=== PATIENT | female | born 1985 | race Two or more races ===

== ENCOUNTER 2017-05-28 13:12 | Emergency (ER) | payer SELFPAY ==
[~2017-05-28] VITALS: Ht 160 cm; Wt 45.4 kg
[2017-05-28 13:53] LABS: Basophils # (auto) 0 uL; Basophils % (auto) 0.3 % (0.0-2.0); CONDITION Y; Eosinophils # (auto) 0 uL; Eosinophils % (auto) 0.8 % (0.0-7.0); Hematocrit 37.5 % (36.0-46.0); Hemoglobin 12.7 g/dL (12.2-16.2); Lymphocytes # (auto) 1.7 uL; Lymphocytes % (auto) 28.9 % (10.0-50.0); Mean Corpuscular Hemoglobin 32.8 pg (28.0-32.0); Mean Corpuscular Hgb Conc. 33.8 g/dL (32.0-36.0); Mean Corpuscular Volume 97.1 fL (80.0-100.0); Mean Platelet Volume 11.5 fL (7.4-10.4); Monocytes # (auto) 0.8 uL; Monocytes % (auto) 12.7 % (0.0-12.0); Neutrophils # (auto) 3.5 uL; Neutrophils % (auto) 57.3 % (37.0-80.0); Platelet Count (auto) 210 10^3/uL (140-450); Red Cell Distribution Width 12.6 % (11.6-16.0); White Blood Cell 6.1 10^3/uL (4.4-10.8)
[2017-05-28 14:03] LABS: Urine Bilirubin Negative (Negative); Urine Blood Negative /uL (Negative); Urine Color Yellow (Yellow); Urine Glucose Normal (Normal); Urine Ketone Negative (Negative); Urine Mucus FEW (None Seen); Urine Nitrite Negative (Negative); Urine RBC 1 /hpf (0 - 4); Urine Squamous Epithelial Cell FEW /hpf (<5)
[2017-05-28 14:22] LABS: Albumin 3.6 g/dL (3.4-5.0); BUN/Creatinine Ratio 18.3; Bilirubin, Total 0.4 mg/dL (0.2-1.0); Calcium 8.5 mg/dL (8.5-10.1); Potassium 3.8 mmol/L (3.5-5.1); Total Protein 7.6 g/dL (6.4-8.2)
[2017-05-28 19:01] VITALS: BP 90/63
[2017-05-28] MEDS ORDERED: SODIUM CHLORIDE 0.9% 1,000 ML IV ONE (19:15)
[2017-05-28] MEDS ORDERED: ONDANSETRON HCL 4 MG/2 ML VIAL IV ONE (19:15)
== END 2017-05-28 21:16 | disposition home or self-care (01) ==
LOC: ER 13:12
DX: O21.1 Hyperemesis gravidarum with metabolic disturbance (principal); E86.0 Dehydration; Z3A.01 Less than 8 weeks gestation of pregnancy; R55 Syncope and collapse
CPT/HCPCS: 36415; 76801; 76817; 80053; 81001; 82962; 84702; 85025; 96361; 96374; 99285; J2405; J7030

== ENCOUNTER 2017-12-28 10:30 | Inpatient (IN) | payer MEDICAID ==
[~2017-12-28] VITALS: Ht 1 cm; Wt 0.5 kg
[2017-12-28] MEDS: LACTATED RINGER'S 1,000 ML IV SCH ×2 (11:15→19:15)
[2017-12-28] MEDS ORDERED: DERMOPLAST 60ML BOTTLE TOP PRN (11:15)
[2017-12-28] MEDS ORDERED: WITCH HAZEL-GLYCERIN PAD TOP PRN (11:15)
[2017-12-28] MEDS ORDERED: PHISODERM TOP SOLN 240ML BTL TOP PRN (11:15)
[2017-12-28] MEDS ORDERED: CARBOPROST TROMETHAMINE 250 MCG/1ML VIAL IM PRN (11:15)
[2017-12-28] MEDS ORDERED: LACT. RINGERS/OXYTOCIN 20UNITS 1,000 ML IV SCH (11:15)
[2017-12-28] MEDS ORDERED: LIDOCAINE 2%HCL (LOCAL ANESTH.) INJ 20ML MDV IJ ONE (11:15)
[2017-12-28] MEDS ORDERED: NALBUPHINE HCL 10 MG/1ml INJECTION IV PRN (11:15)
[2017-12-28 12:00] LABS: Basophils # (auto) 0 uL; Eosinophils # (auto) 0 uL; Eosinophils % (auto) 0.5 % (0.0-7.0); Hemoglobin 13.8 g/dL (12.2-16.2)
[2017-12-28 12:01] LABS: Basophils % (auto) 0.5 % (0.0-2.0); Hematocrit 41.6 % (36.0-46.0); Lymphocytes # (auto) 1.9 uL; Lymphocytes % (auto) 25.5 % (10.0-50.0); Mean Corpuscular Hemoglobin 34.6 pg (28.0-32.0); Mean Corpuscular Hgb Conc. 33.1 g/dL (32.0-36.0); Mean Corpuscular Volume 104.4 fL (80.0-100.0); Monocytes # (auto) 0.9 uL; Monocytes % (auto) 12.6 % (0.0-12.0); Neutrophils # (auto) 4.6 uL; Neutrophils % (auto) 60.9 % (37.0-80.0); Platelet Count (auto) 140 10^3/uL (140-450); Red Blood Cells 3.98 10^6/uL (4.0-5.20); Red Cell Distribution Width 13.9 % (11.8-14.3); White Blood Cell 7.5 10^3/uL (4.4-10.8)
[2017-12-28 12:12] LABS: INR 0.98 (0.9-1.15); Partial Thromboplastin Time 29.6 sec (22.64-33.71); Prothrombin Time 10.7 sec (9.37-12.3)
[2017-12-28] MEDS ORDERED: LIDOCAINE HCL 2 %PF INJ 10ML AMP IJ ONE ×2 (12:30→12:40)
[2017-12-28] MEDS ORDERED: fentaNYL CITRATE 100 MCG/2 ML VL IV ONE (12:30)
[2017-12-28] MEDS ORDERED: ePHEDrine SULFATE 50 MG/ML AMP IV ONE (12:30)
[2017-12-28] MEDS ORDERED: NALOXONE HCL 0.4 MG/ML VIAL IV ONE (12:30)
[2017-12-28] MEDS ORDERED: fentaNYL W ROPIVACAINE 150 ML EPI SCH (12:30)
[2017-12-28 12:32] LABS: Albumin 2.6 g/dL (3.4-5.0); BUN/Creatinine Ratio 10.3; Calcium 8.7 mg/dL (8.5-10.1); Potassium 3.3 mmol/L (3.5-5.1)
[2017-12-28 12:35] LABS: Bilirubin, Total 0.5 mg/dL (0.2-1.0); Total Protein 6.8 g/dL (6.4-8.2)
[2017-12-28] MEDS ORDERED: ePHEDrine SULFATE 50 MG/ML AMP ONE (12:40)
[2017-12-28] MEDS ORDERED: fentaNYL W ROPIVACAINE 0 ML EPI ONE (12:40)
[2017-12-28] MEDS ORDERED: fentaNYL CITRATE 100 MCG/2 ML VL ONE (12:40)
[2017-12-28 12:51] LABS: Urine Bacteria NONE SEEN /hpf (None Seen); Urine Blood 2+ /uL (Negative); Urine WBC 7 /hpf (0 - 5)
[2017-12-28 12:53] LABS: Alcohol, Urine < 3.0 mg/dL (0-5); Amphetamine Screen, Urine NEGATIVE (NEGATIVE); Barbiturate Scree,Urine NEGATIVE (NEGATIVE); Benzodiazephine Screen, Urine NEGATIVE (NEGATIVE); Cannabinoid Screen, Urine NEGATIVE (NEGATIVE); Cocaine Screen, Urine NEGATIVE (NEGATIVE); Opiate Scree,Urine NEGATIVE (NEGATIVE); Phencyclidine Screen, Urine NEGATIVE (NEGATIVE)
[2017-12-28] MEDS: IBUPROFEN 600 MG TAB PO PRN ×3 (14:19→23:16)
[2017-12-28 15:00] VITALS: BP 106/58
[2017-12-28 19:00] VITALS: BP 105/58
[2017-12-28] MEDS ORDERED: ACETAMINOPHEN/CODEINE#3 (300/30mg) TAB PO PRN (20:15)
[2017-12-28] MEDS ORDERED: ACETAMINOPHEN/CODEINE#3 (300/30mg) TAB ONE (20:23)
[2017-12-28 23:00] VITALS: BP 111/63
[2017-12-29 03:00] VITALS: BP 126/76
[2017-12-29] MEDS: LACTATED RINGER'S 1,000 ML IV SCH (03:15)
[2017-12-29] MEDS: IBUPROFEN 600 MG TAB PO PRN ×3 (05:28→13:32)
[2017-12-29 07:00] VITALS: BP 99/62
[2017-12-29] MEDS ORDERED: PREN-145 OR (08:08)
[2017-12-29] MEDS ORDERED: DOCUSATE CALCIUM 240 MG CAP PO SCH (10:00)
[2017-12-29 11:00] VITALS: BP 97/46
== END 2017-12-29 15:30 | disposition home or self-care (01) | DRG 560 ==
LOC: LDRP 10:30
PROVIDERS: ADMIT Specialist; ATTEND Specialist
PROC: 10E0XZZ Delivery of Products of Conception, External Approach (ICD-10-PCS; principal; 2017-12-28)
PROC: 0HQ9XZZ Repair Perineum Skin, External Approach (ICD-10-PCS; 2017-12-28)
DX: O42.02 Full-term premature rupture of membranes, onset of labor within 24 hours of rupture (principal); O69.81X0 Labor and delivery complicated by cord around neck, without compression, not applicable or unspecified; O70.0 First degree perineal laceration during delivery; Z37.0 Single live birth; Z3A.37 37 weeks gestation of pregnancy
CPT/HCPCS: 36415; 59025; 59409; 80053; 80307; 81001; 81002; 85025; 85610; 85730; 86703; 86850; 86900; 86901; 96365; J2590; J3010